=== PATIENT | male | born 2000 | race Caucasian/White ===

== ENCOUNTER 2020-09-09 15:24 | Emergency (ER) | payer OTHER ==
[2020-09-09] MEDS ORDERED: BACTRIM DS TAB1 EACH PO (16:55)
[2020-09-09] MEDS ORDERED: CEPHALEXIN500 M1 PO (16:55)
== END 2020-09-09 17:07 | disposition home or self-care (01) ==
LOC: ER1 15:24
DX: L60.0 Ingrowing nail (principal)
CPT/HCPCS: 99283

== ENCOUNTER 2020-10-12 19:42 | Emergency (ER) | payer OTHER ==
[~2020-10-12 19:42] MED LIST: BACTRIM DS TAB1 EACH PO; CEPHALEXIN500 M1 PO
== END 2020-10-12 23:53 | disposition home or self-care (01) ==
LOC: ER1 19:42
DX: R42 Dizziness and giddiness (principal); R51.9 Headache, unspecified; H57.89 Other specified disorders of eye and adnexa
CPT/HCPCS: 99283

== ENCOUNTER 2020-10-22 01:59 | Emergency (ER) | payer OTHER ==
[2020-10-22 03:06] LABS: BORDETELLA PARAPERTUSSIS Not Detected (Not Detectd); BORDETELLA PERTUSSIS Not Detected (Not Detectd); CHLAMYDIA PNEUMONIAE Not Detected (Not Detectd); CORONAVIRUS HKU1 Not Detected (Not Detectd); CORONAVIRUS NL63 Not Detected (Not Detectd); CORONAVIRUS OC43 Not Detected (Not Detectd); CORONOAVIRUS 229E Not Detected (Not Detectd); HUMAN METAPNEUMOVIRUS Not Detected (Not Detectd); HUMAN RHINOVIRUS/ENTEROVIRUS Not Detected (Not Detectd); INFLUENZA A Not Detected (Not Detectd); INFLUENZA B Not Detected (Not Detectd); MYCOPLASMA PNEUMONIAE Not Detected (Not Detectd); PARAINFLUENZA VIRUS 1 Not Detected (Not Detectd); PARAINFLUENZA VIRUS 2 Not Detected (Not Detectd); PARAINFLUENZA VIRUS 3 Not Detected (Not Detectd); PARAINFLUENZA VIRUS 4 Not Detected (Not Detectd); RESPIRATORY SYNCYTIAL VIRUS Not Detected (Not Detectd)
[2020-10-22 03:13] LABS: HEMOGLOBIN 14.4 gm/dl (14.0-17.5); RED BLOOD COUNT 4.8 M/UL (4.20-5.50); WHITE BLOOD COUNT 6.6 K/UL (4.5-11.0)
[2020-10-22 03:37] LABS: BUN/CREATININE RATIO 11 (0-10)
[2020-10-22 04:23] LABS: SARS-CoV-2 DETECTED (Not Detectd)
[2020-10-22] MEDS ORDERED: DECADRON6 MG PO (05:03)
== END 2020-10-22 05:20 | disposition home or self-care (01) ==
LOC: ER1 01:59
PROVIDERS: Family Medicine
DX: U07.1 COVID-19 (principal)
CPT/HCPCS: 71045; 80053; 83615; 85025; 86140; 87081; 87633; 87880; 99284